=== PATIENT | male | born 1985 | race Caucasian/White ===

== ENCOUNTER 2023-12-24 10:48 | Emergency (ER) | payer SELFPAY ==
[2023-12-24 10:54] VITALS: BP 108/67
--- NOTE | 2023-12-24 11:53 | ED.GENMED ---
History of Present Illness
General
Chief Complaint: Oral/Mouth Problem
Time Seen by Provider: 12/24/23 11:42
History of Present Illness
History of Present Illness:
38-year-old male presents to the emergency department for evaluation of a left lower dental infection. He states he had a similar infection approximately 3 months ago and was treated with antibiotics. He unfortunately cannot afford oral surgery
for tooth extraction even though that is been recommended to him for definitive care. No fevers or chills. He is able to eat and denies any dysphagia or odynophagia
Past History
Past History
ED Past Medical History: None
ED Past Surgical History: None
Review of Systems
Review of Systems
Allergies reviewed?: Yes
All Other Systems: ROS reviewed and negative except as documented in HPI and ROS
Phy Exam
Physical Exam
Physical Exam:
GEN: Well appearing, NAD, WDWN
HEENT: Oral mucosa moist, no scleral icterus. Large left lower dental abscess with associated submandibular lymphadenopathy, no trismus
Cardiac: Regular rate
Lung: No respiratory distress, no tachypnea
MSK: No gross deformity or injuries
Skin: Good color, no pallor or jaundice, no rashes
Neuro: AO x3, moves all extremities freely
Psych: Calm, cooperative
Course
Vital Signs
Initial and Last Documented VS:
Initial Vital Signs
Temp Pulse Resp BP Pulse Ox
98.4 F 61 16 108/67 96
12/24/23 10:54 12/24/23 10:54 12/24/23 10:54 12/24/23 10:54 12/24/23 10:54
Last Documented Vital Signs
Temp Pulse Resp BP Pulse Ox
98.4 F 61 16 108/67 96
12/24/23 10:54 12/24/23 10:54 12/24/23 10:54 12/24/23 10:54 12/24/23 10:54
MDM/Problems Addressed
MDM/Problems Addressed:
Patient refused incision and drainage at the bedside under anesthesia, I educated him that this is ultimately going to be necessary and antibiotics alone likely result in full resolution of the infection. He is also counseled on the downstream
effects of untreated dental infections including and this. He verbalizes understanding again refuses I&D at the bedside, he states he is working his finances and wants to be able to perform the definitive dental procedure he needs. Will discharge
on Augmentin, savings card provided
*Critical Care Note
Total Time (30-74mins, 75-104mins- exclusive of procedures): Not Applicable
ED Attending Note
-
Portions of this chart may have been created with voice recognition software.� Occasional wrong word or��sound alike� substitutions may have occurred due to the inherent limitations of voice recognition software.
Discharge Plan
Departure
Patient Disposition: Home (Routine Discharge)
Date of Disposition: 12/24/23
Time of Disposition: 11:53
Patient with high blood pressure during this ER visit?: No
Discharge Problem:
Abscess, dental
Instructions: Tooth Abscess (DC)
Prescriptions:
New
amoxicillin-pot clavulanate 875-125 mg tablet
1 tab PO BID Qty: 20 0RF
No Action
ibuprofen 400 MG tablet
400 mg PO PRN PRN (Reason: pain)
Referrals:
NONE,* [Family Provider] -
Activity Restrictions/Additional Instructions:
See an oral surgeon as soon as possible for tooth extraction
We discussed that persistent dental infections can lead to many complex medical issues, including but not limited to heart valve infection
Warm compresses and salt water soaks may help, however we discussed that incision and drainage may be necessary for this abscess. If you worsen, return to the ER
Interventions
Interventions:
*Nursing Disposition Last Done: 12/24/23 12:04
Discharge Date and Time
Discharge Date/Time: 12/24/23 12:05
Print Language: NEPALI
== END 2023-12-24 12:05 | disposition home or self-care (01) ==
LOC: EMR 10:48
PROVIDERS: EMERGENCY PHYSICIAN Emergency Medicine
DX: K04.7 Periapical abscess without sinus (principal)
CPT/HCPCS: 99283

== ENCOUNTER 2024-06-24 01:14 | Emergency (ER) | payer SELFPAY ==
[2024-06-24 01:17] VITALS: BP 113/71
--- NOTE | 2024-06-24 04:55 | ED.GENMED ---
History of Present Illness
General
Chief Complaint: Dental Problem
Source: patient and previous hospital records (Previous ED visits for similar complaint most recently December 2023)
Exam Limitations: none
Time Seen by Provider: 06/24/24 04:21
Nursing documentation reviewed up to this point in time: agreed with
History of Present Illness
History of Present Illness:
This is a 38-year-old gentleman who presents to the ED with complaints of left lower molar dental pain, abscess, local swelling. Pain and swelling began yesterday, progressively worse throughout the day. He has history of similar episodes of
dental abscesses and unfortunately has not been able to afford definitive oral surgical care.
Similar complaint during ED visit December 2023. Dental abscess resolved with a course of Augmentin but he admits to difficulty swallowing pills and had to crush the pills.
He has been taking Tylenol intermittently as well as smoking pot. He denies fever nor chills, no headache, no sore throat. He is able to eat and drink.
Past History
Past History
ED Past Medical History: None
ED Past Surgical History: None
Social History
Tobacco: Smoker
Alcohol: None
Drug: Marijuana
Living: with family
Employment: Employed
Family History
Family History: Other (Noncontributory)
Phy Exam
Physical Exam
Physical Exam:
GENERAL: 38-year-old gentleman appears his stated age, awake and alert, pleasant, easily communicative.
EYE: pupils equal and reactive. anicteric
NECK: Supple, nontender, no meningismus, mild left submandibular adenopathy noted.
ENT: posterior pharynx is clear, oral mucosa is moist. Poor dentition globally. There is a left lower dental abscess with mild local soft tissue swelling, no erythema, moderate local tenderness to palpation. TM clear b/l, nares patent.
CARDIAC: Regular rate and rhythm. no murmur.
LUNGS: Clear breath sounds bilaterally, no acute respiratory distress, no wheezes/rales/rhonchi
ABDOMEN: Soft, nondistended, without focal tenderness
NEUROLOGICAL: Alert and oriented x3, no focal neuro deficits. Gait is ortiz and steady.
SKIN: Warm and dry, normal color, skin intact. No rash.
MUSCULOSKELETAL: No C/C/E. peripheral pulses are full and equal b/l. No palpable tenderness.
PSYCH: Normal and appropriate interaction.
Course
Orders/Labs/Results
Orders:
Orders
06/24/24 04:53
Amoxicillin/Clavulanate Potass [Augmentin 250 mg/5 ml] 1,000 mg PO NOW STA
06/24/24 04:55
Ibuprofen [Motrin] 800 mg PO NOW STA
Vital Signs
Initial and Last Documented VS:
Initial Vital Signs
Temp Pulse Resp BP Pulse Ox
98.5 F 95 16 113/71 100
06/24/24 01:17 06/24/24 01:17 06/24/24 01:17 06/24/24 01:17 06/24/24 01:17
Last Documented Vital Signs
Temp Pulse Resp BP Pulse Ox
98.5 F 95 16 113/71 100
06/24/24 01:17 06/24/24 01:17 06/24/24 01:17 06/24/24 01:17 06/24/24 01:17
MDM/Problems Addressed
Differential Diagnosis Includes:
Patient presents with recurrent dental abscess left lower molar region.
He declines incision and drainage, declines an IM dose of Toradol for pain.
Overall nontoxic in appearance, afebrile, no trismus, posterior pharynx is clear, no sublingual edema. Able to eat and drink.
Will initiate a course of Augmentin, liquid suspension and will give a dose of ibuprofen suspension for pain. Prescriptions for both have been provided.
He has been provided with contact information for our free clinic as well as [facility].
*Pulse Oximetry
Patient hypoxic: no
*Critical Care Note
Total Time (30-74mins, 75-104mins- exclusive of procedures): Not Applicable
ED Attending Note
-
Portions of this chart may have been created with voice recognition software.� Occasional wrong word or��sound alike� substitutions may have occurred due to the inherent limitations of voice recognition software.
Discharge Plan
Departure
Patient Disposition: Home (Routine Discharge)
Date of Disposition: 06/24/24
Time of Disposition: 04:55
Patient with high blood pressure during this ER visit?: No
Condition: Good
Discharge Problem:
Abscess, dental
Instructions: Tooth Abscess (DC)
Prescriptions:
New
amoxicillin-pot clavulanate 400-57 mg/5 mL suspension for reconstitution
10 ml PO Q12H 10 Days Qty: 200 0RF
ibuprofen 100 mg/5 mL suspension
600 mg PO QID PRN (Reason: Pain) Qty: 473 0RF
Referrals:
[facility] [Outside]
NONE,* [Family Provider] -
Activity Restrictions/Additional Instructions:
Try calling our dental clinic at [facility] [phone] versus try to [facility] at [phone]
Interventions
Interventions:
*Risk Screen - Suicide Last Done: 06/24/24 01:17
*General Assessment Last Done: 06/24/24 01:17
*Neglect/Abuse Screening Last Done: 06/24/24 01:17
Discharge Date and Time
Print Language: INDONESIAN
--- NOTE | 2024-06-24 04:59 | EDRN ---
Called pharmacy for abx
[2024-06-24] MEDS: MOTRIN 800 MG PO (05:16)
[2024-06-24] MEDS: AUGMENTIN 250 MG/5 ML 1000 MG PO (05:18)
[2024-06-24 05:19] VITALS: BP 128/83
== END 2024-06-24 05:24 | disposition home or self-care (01) ==
LOC: EMR 01:14
PROVIDERS: EMERGENCY PHYSICIAN Emergency Medicine
DX: K04.7 Periapical abscess without sinus (principal); K08.89 Other specified disorders of teeth and supporting structures; F41.9 Anxiety disorder, unspecified; F32.A Depression, unspecified; F17.200 Nicotine dependence, unspecified, uncomplicated
CPT/HCPCS: 99283

== ENCOUNTER 2024-08-19 02:55 | Emergency (ER) | payer SELFPAY ==
[2024-08-19 02:58] VITALS: BP 108/66
[2024-08-19 03:09] VITALS: BMI 17.5
--- NOTE | 2024-08-19 03:16 | ED.GENMED ---
History of Present Illness
General
Chief Complaint: Dental Problem
Time Seen by Provider: 08/19/24 03:16
History of Present Illness
History of Present Illness:
TIME OF INITIAL ENCOUNTER: 3:17 AM
HPI: About 9 hours ago, the patient had abrupt right lower dental pain. He has severe cavities. Due to lack of good insurance, he has been able able to follow-up with an oral surgeon. His dentist wanted him to see an oral surgeon to have teeth
extracted.
EXAM:
GENERAL: Appears uncomfortable
HEENT: Dental caries noted, some soft tissue swelling noted near the right premolar gingiva with no palpable/drainable abscess
NEUROLOGIC: Excellent strength all extremities, no obvious coordination deficits
PSYCHIATRIC: Appropriate mental status, normal insight and judgement
EXTREMITIES: Nontender, no edema, moves all extremities equally
SKIN: No rash, no lesions
NUMBER AND COMPLEXITY OF PROBLEMS ADDRESSED AT THE ENCOUNTER
� Chronic conditions affecting care: Smoker, anxiety/depression
� Acute Exacerbation and/or Progression of Chronic Illness: This is an acute problem
� Differential Diagnosis includes: Dental caries, nonspecific dental pain, dental abscess
AMOUNT AND/OR COMPLEXITY OF DATA TO BE REVIEWED AND ANALYZED
� I performed an independent evaluation of and my interpretation is:
EKG:
CT:
X-rays:
Laboratory Studies:
Other:
� Review of other/old records: The patient had 2 ED visits related to dental abscess and was placed on amoxicillin then Augmentin
� Clinical information was obtained by an independent historian: I spoke to girlfriend at bedside
� Prescriptions/Medications Considered but not given: I offered and recommended posterior inferior alveolar block however the patient declined stating that he is scared of needles. I also offered IM Toradol however the patient
declined.
� Further testing considered but not performed: No clear indication for lab work
RISK OF COMPLICATIONS AND/OR MORBIDITY OR MORTALITY OF PATIENT MANAGEMENT
� Social determinants of health affecting care: Lives at home
� Discussion with other providers:
� Escalation of care including admission/observation vs risk of discharge considered: Will give liquid clindamycin and liquid ibuprofen. I have also given the contact information for local [facility].
ANY OTHER UPDATES:
Past History
Past History
ED Past Medical History: None
ED Past Surgical History: None
Social History
Tobacco: Smoker
Alcohol: None
Drug: Marijuana
Living: with family
Employment: Employed
Family History
Family History: Other (Noncontributory)
Phy Exam
Physical Exam
Physical Exam:
See HPI
Course
Orders/Labs/Results
Orders:
Orders
08/19/24 03:28
Clindamycin Palmitate [Cleocin Oral Soln] 300 mg PO NOW STA
Ibuprofen [Motrin] 600 mg PO NOW STA
Vital Signs
Initial and Last Documented VS:
Initial Vital Signs
Temp Pulse Resp BP Pulse Ox
36.8 C 76 26 108/66 100
08/19/24 02:58 08/19/24 02:58 08/19/24 02:58 08/19/24 02:58 08/19/24 02:58
Last Documented Vital Signs
Temp Pulse Resp BP Pulse Ox
36.8 C 76 26 108/66 100
08/19/24 02:58 08/19/24 02:58 08/19/24 02:58 08/19/24 02:58 08/19/24 02:58
*Critical Care Note
Total Time (30-74mins, 75-104mins- exclusive of procedures): Not Applicable
ED Attending Note
-
Portions of this chart may have been created with voice recognition software.� Occasional wrong word or��sound alike� substitutions may have occurred due to the inherent limitations of voice recognition software.
Discharge Plan
Departure
Patient Disposition: Home (Routine Discharge)
Date of Disposition: 08/19/24
Time of Disposition: 03:29
Patient with high blood pressure during this ER visit?: Yes
Discharge Problem:
Pain, dental
Instructions: Dental Pain (DC)
Prescriptions:
New
clindamycin palmitate HCl [Clindamycin Pediatric] 75 mg/5 mL recon soln
300 mg PO TID Qty: 420 0RF
No Action
ibuprofen [Motrin] 800 mg Tablet
800 mg PO Q6H PRN (Reason: tooth pain)
acetaminophen [Tylenol] 325 mg Capsule
650 mg PO Q6H PRN (Reason: pain)
Referrals:
Lizet Nichols, DMD [Active] - Call in 1-3 days for appt
Activity Restrictions/Additional Instructions:
I recommend using [id number] ibuprofen for pain. You could consider using the children's ibuprofen as the liquid form if you are having trouble swallowing pills. I sent a prescription for clindamycin to help treat potential infection to the
[facility] in [place]. Follow-up with your dentist. I have given you the contact information for an oral surgeon, Dr. Nichols, as well.
Interventions
Interventions:
*Risk Screen - Suicide Last Done: 08/19/24 02:58
*General Assessment Last Done: 08/19/24 03:10
*Neglect/Abuse Screening Last Done: 08/19/24 02:58
*ED- Fall Risk Assessment Last Done: 08/19/24 03:10
*ED COVID-19 Vaccine History Last Done: 08/19/24 03:10
Discharge Date and Time
Print Language: ERITREAN
[2024-08-19] MEDS: MOTRIN 600 MG PO (03:38)
[2024-08-19] MEDS: CLEOCIN ORAL SOLN 300 MG PO (03:56)
== END 2024-08-19 04:04 | disposition home or self-care (01) ==
LOC: EMR 02:55
PROVIDERS: EMERGENCY PHYSICIAN Emergency Medicine
DX: K08.89 Other specified disorders of teeth and supporting structures (principal); K02.9 Dental caries, unspecified; M79.89 Other specified soft tissue disorders; R03.0 Elevated blood-pressure reading, without diagnosis of hypertension; Z59.71 Insufficient health insurance coverage; F17.200 Nicotine dependence, unspecified, uncomplicated
CPT/HCPCS: 99283

== ENCOUNTER 2024-09-28 12:26 | Emergency (ER) | payer SELFPAY ==
[2024-09-28 12:31] VITALS: BP 112/71
[2024-09-28] MEDS: AUGMENTIN 875 MG/125 MG 1 TABLET PO (13:06)
--- NOTE | 2024-09-28 13:14 | ED.GENMED ---
History of Present Illness
General
Chief Complaint: Dental Problem
Source: patient
Time Seen by Provider: 09/28/24 12:49
History of Present Illness
History of Present Illness:
Note:
CHIEF COMPLAINT(S)
Recurrent dental pain.
HISTORY OF PRESENT ILLNESS
The patient is a 39-year-old male who presents with recurrent dental pain that became severe again this morning. The pain has been an ongoing issue for approximately one month. The patient took ibuprofen at 11:00 AM today, but reports that it is not
providing sufficient relief. He previously received antibiotics during a prior visit and completed the course, which helped at the time. However, the pain has recurred. The patient describes a sharp pain in response to temperature changes.
The patient initially experienced this issue about a year ago and has not seen a dentist recently, partially due to insurance issues that have since been resolved. He also presented to this ER about a month ago where he received pain medication and
antibiotics with relief.
CHRONIC MEDICAL CONDITIONS SIGNIFICANTLY AFFECTING CARE
The patient does not report any chronic medical conditions significantly impacting care at this visit.
ALLERGIES
The patient denies any allergies to medications.
MEDICATIONS
Took ibuprofen for pain earlier today. No other medications mentioned.
Past History
Past History
ED Past Medical History: Psychiatric
ED Past Surgical History: None
Social History
Tobacco: Smoker
Alcohol: None
Drug: Marijuana
Personal: Single
Living: with family
Employment: Employed
Family History
Family History: Other (Noncontributory)
Review of Systems
Review of Systems
All Other Systems: ROS reviewed and negative except as documented in HPI and ROS
Phy Exam
Physical Exam
Physical Exam:
GENERAL: Alert , in no apparent distress
EYE: conjunctiva clear
Head: Normocephalic atraumatic
NECK: Supple,
ENT: mmm. Mobile and somewhat tender submandibular lymph node on the left. No overlying erythema, no fluctuance. Patient has overall very poor dentition with multiple dental caries, tooth erosion and some missing teeth. No gingival bleeding.
LUNGS: no acute respiratory distress
NEUROLOGICAL: Alert and oriented
SKIN: Warm and dry, skin intact.
MUSCULOSKELETAL: well perfused.
PSYCH: Normal and appropriate interaction.
Scores
Heart Failure Risk
Heart Failure Risk Score: Not Applicable
Heart Score for Chest Pain Patients
STEMI patient?: Not applicable
Withdrawal Assessment of Alcohol
Withdrawal Assessment Completed?: Not applicable
Course
Orders/Labs/Results
Orders:
Orders
09/28/24 13:03
Amoxicillin 875 mg/Clav 125 mg [Augmentin 875 mg/125 mg] 1 tablet PO NOW STA
Vital Signs
Initial and Last Documented VS:
Initial Vital Signs
Temp Pulse Resp BP Pulse Ox
98.2 F 104 18 112/71 99
09/28/24 12:31 09/28/24 12:31 09/28/24 12:31 09/28/24 12:31 09/28/24 12:31
Last Documented Vital Signs
Temp Pulse Resp BP Pulse Ox
98.2 F 104 18 112/71 99
09/28/24 12:31 09/28/24 12:31 09/28/24 12:31 09/28/24 12:31 09/28/24 12:31
MDM/Problems Addressed
Differential Diagnosis Includes:
1. Dental caries
2. Dental abscess
3. Pericoronitis
4. Pulpitis
5. Periodontal disease
6. Santo's Angina
MDM/Problems Addressed:
- Prescribe antibiotics to address underlying infection.
- Send pain medication prescription to the pharmacy for the patient to pick[employer]. Patient drove to ED so will avoid narcotics
- Provide the patient with information on contacting local dentists through his dental insurance for further treatment.
I did offer patient a inferior alveolar nerve block however patient declines as he states a significant fear of needles
*Pulse Oximetry
Patient hypoxic: no
*Critical Care Note
Total Time (30-74mins, 75-104mins- exclusive of procedures): Not Applicable
ED Attending Note
-
Portions of this chart may have been created with voice recognition software.� Occasional wrong word or��sound alike� substitutions may have occurred due to the inherent limitations of voice recognition software.
Discharge Plan
Departure
Patient Disposition: Home (Routine Discharge)
Date of Disposition: 09/28/24
Time of Disposition: 13:15
Patient with high blood pressure during this ER visit?: No
Discharge Problem:
Dental caries
Instructions: Dental Pain (DC)
Prescriptions:
New
amoxicillin-pot clavulanate 875-125 mg tablet
1 tab PO BID Qty: 19 0RF
oxycodone-acetaminophen [Percocet] 5-325 mg tablet
1 tab PO Q6HPRN PRN (Reason: pain) Qty: 8 0RF
No Action
ibuprofen [Motrin] 800 mg Tablet
800 mg PO Q6H PRN (Reason: tooth pain)
acetaminophen [Tylenol] 325 mg Capsule
650 mg PO Q6H PRN (Reason: pain)
clindamycin palmitate HCl [Clindamycin Pediatric] 75 mg/5 mL recon soln
300 mg PO TID Qty: 420 0RF
Referrals:
NONE,* [Family Provider, Internal Medicine]
Interventions
Interventions:
*Risk Screen - Suicide Last Done: 09/28/24 12:31
*Neglect/Abuse Screening Last Done: 09/28/24 12:31
*Nursing Disposition Last Done: 09/28/24 13:34
Discharge Date and Time
Discharge Date/Time: 09/28/24 13:35
Print Language: ARABIC
== END 2024-09-28 13:35 | disposition home or self-care (01) ==
LOC: EMR 12:26
PROVIDERS: EMERGENCY PHYSICIAN Emergency Medicine
DX: K02.9 Dental caries, unspecified (principal); F17.200 Nicotine dependence, unspecified, uncomplicated
CPT/HCPCS: 99283

== ENCOUNTER 2024-11-19 08:11 | Emergency (ER) | payer SELFPAY ==
[2024-11-19 08:12] VITALS: BP 156/120
--- NOTE | 2024-11-19 08:33 | ED.GENMED ---
History of Present Illness
General
Chief Complaint: Oral/Mouth Problem
Source: patient
Exam Limitations: none
Time Seen by Provider: 11/19/24 08:24
Nursing documentation reviewed up to this point in time: agreed with
History of Present Illness
History of Present Illness:
Patient scheduled for '23 tooth extraction', in 2 days with oral surgeon, presents to ED secondary to ongoing, persistent pain despite taking ibuprofen along with amoxicillin for the past 1 week. Denies fever or chills. Denies nausea or vomiting.
Denies difficulty with swallowing. Denies new trauma. Patient has had ongoing dental pain with infection for over 6 months. However, secondary to lack of insurance, patient has not been able to see any oral surgeons. Recently, patient obtained
medical and dental insurance.
Past History
Past History
ED Past Medical History: Psychiatric
ED Past Surgical History: None
Social History
Tobacco: Smoker
Alcohol: None
Drug: Marijuana
Personal: Single
Living: with family
Employment: Employed
Family History
Family History: Other (Noncontributory)
Review of Systems
Review of Systems
Allergies reviewed?: Yes
All Other Systems: ROS reviewed and negative except as documented in HPI and ROS
Constitutional: Reports no symptoms
EENT: Reports mouth pain (Dental pain)
Respiratory: Reports no symptoms; Denies trouble breathing
ABD/GI: Reports no symptoms; Denies vomiting
Skin: Reports no symptoms
Neurological: Reports no symptoms; Denies headache
Phy Exam
Physical Exam
Physical Exam:
Physical Exam
General: mild painful distress, not acutely ill. afebrile
Head: nc/at. eomi
Neck: supple. no meningeal signs. normal posterior pharynx. poor dentition noted with multiple teeth missing, along with broken fillings. no gingival swelling or open drainage noted
Abdomen: normal bowel sounds. not tender.
Neuro: alert and oriented x 3. no focal neurological deficits
Skin: no rash
Psychiatric: well kept. interactive and cooperative
Extremities: no edema.
Course
Vital Signs
Initial and Last Documented VS:
Initial Vital Signs
Temp Pulse Resp BP Pulse Ox
98.7 F 88 16 156/120 100
11/19/24 08:12 11/19/24 08:12 11/19/24 08:12 11/19/24 08:12 11/19/24 08:12
Last Documented Vital Signs
Temp Pulse Resp BP Pulse Ox
98.7 F 88 16 156/120 100
11/19/24 08:12 11/19/24 08:12 11/19/24 08:12 11/19/24 08:12 11/19/24 08:35
MDM/Problems Addressed
MDM/Problems Addressed:
History and exam consistent with what appears to be chronic, ongoing dental pain due to poor dentition with underlying multiple dental cavities, as evidenced by missing fillings and fractured tooth. However, fortunately, patient is afebrile
without any gross evidence of abscess formation, nor open drainage. Posterior pharynx clear and patient able to tolerate oral contents, without difficulty. Fortunately, patient already has an appointment for what appears to be an extensive dental
procedure with an oral surgeon in 2 days. Patient has already completed course of antibiotics. As such, I do not feel that he needs further antibiotic treatment. As such, patient will be treated symptomatically with short course of pain
medication, along with recommendation to continue to take ibuprofen at home. Patient expresses understanding at time of discharge. Patient otherwise is afebrile and nontoxic-appearing, at time of discharge.
*Pulse Oximetry
SaO2: 100
Oxygen Mode of Delivery: Room air
Patient hypoxic: no
*Critical Care Note
Total Time (30-74mins, 75-104mins- exclusive of procedures): Not Applicable
ED Attending Note
-
Portions of this chart may have been created with voice recognition software.� Occasional wrong word or��sound alike� substitutions may have occurred due to the inherent limitations of voice recognition software.
Discharge Plan
Departure
Patient Disposition: Home (Routine Discharge)
Date of Disposition: 11/19/24
Time of Disposition: 08:35
Patient with high blood pressure during this ER visit?: Yes
Discharge Problem:
Pain due to dental caries
Instructions: Dental Pain (DC)
Prescriptions:
New
oxycodone-acetaminophen [Percocet] 5-325 mg Tablet
1 tab PO Q6HPRN PRN (Reason: pain) Qty: 6 0RF
No Action
ibuprofen [Motrin] 800 mg Tablet
800 mg PO Q6H PRN (Reason: tooth pain)
acetaminophen [Tylenol] 325 mg Capsule
650 mg PO Q6H PRN (Reason: pain)
clindamycin palmitate HCl [Clindamycin Pediatric] 75 mg/5 mL recon soln
300 mg PO TID Qty: 420 0RF
amoxicillin-pot clavulanate 875-125 mg tablet
1 tab PO BID Qty: 19 0RF
oxycodone-acetaminophen [Percocet] 5-325 mg tablet
1 tab PO Q6HPRN PRN (Reason: pain) Qty: 8 0RF
Stand Alone Forms: Return to Work
Activity Restrictions/Additional Instructions:
As discussed, please follow-up with your oral surgeon as scheduled on Tuesday for further evaluation and treatment. In the meantime, continue to take ibuprofen with prescribed pain medication. Your prescription has been sent electronically to
[facility] pharmacy in [place].
Interventions
Interventions:
*Risk Screen - Suicide Last Done: 11/19/24 08:12
*General Assessment Last Done: 11/19/24 08:45
*Neglect/Abuse Screening Last Done: 11/19/24 08:45
*ED- Fall Risk Assessment Last Done: 11/19/24 08:45
*ED COVID-19 Vaccine History Last Done: 11/19/24 08:45
*Nursing Disposition Last Done: 11/19/24 08:45
Discharge Date and Time
Print Language: ITALIAN
== END 2024-11-19 08:45 | disposition home or self-care (01) ==
LOC: EMR 08:11
PROVIDERS: EMERGENCY PHYSICIAN Emergency Medicine
DX: K08.89 Other specified disorders of teeth and supporting structures (principal); K02.9 Dental caries, unspecified; F17.200 Nicotine dependence, unspecified, uncomplicated; Z59.71 Insufficient health insurance coverage
CPT/HCPCS: 99283